=== PATIENT | male | born 1995 | race Caucasian/White ===

== ENCOUNTER 2017-05-15 18:20 | Emergency (ER) | payer SELFPAY ==
[~2017-05-15] VITALS: Ht 190.5 cm; Wt 77.1 kg
[~2017-05-15 18:20] MED LIST: AMOXICILLIN500 MG PO; AMOXIL; CLARITIN10 MG PO; NASONEX; ZITHROMAX Z PA250 MG PO; ZYRTEC
[2017-05-15] MEDS ORDERED: FLONASE ALLERG9.9 ML NAS (18:30)
[2017-05-15] MEDS ORDERED: ZYRTEC10 MG PO (18:30)
== END 2017-05-15 18:42 | disposition home or self-care (01) ==
LOC: ED 18:20
DX: J01.90 Acute sinusitis, unspecified (principal); F17.200 Nicotine dependence, unspecified, uncomplicated

== ENCOUNTER 2017-08-02 10:30 | Emergency (ER) | payer SELFPAY ==
[~2017-08-02] VITALS: Ht 193 cm; Wt 77.1 kg
[~2017-08-02 10:30] MED LIST changes: +FLONASE ALLERG9.9 ML NAS; +ZYRTEC10 MG PO
[2017-08-02] MEDS ORDERED: AMOXICILLIN500 M2 PO (10:54)
== END 2017-08-02 10:56 | disposition home or self-care (01) ==
LOC: ED 10:30
DX: J01.90 Acute sinusitis, unspecified (principal); J02.9 Acute pharyngitis, unspecified; Z79.899 Other long term (current) drug therapy

== ENCOUNTER 2017-09-06 18:41 | Emergency (ER) | payer OTHER ==
[~2017-09-06] VITALS: Ht 193 cm; Wt 77.1 kg
[~2017-09-06 18:41] MED LIST changes: +AMOXICILLIN500 M2 PO
[2017-09-06 19:00] LABS: BASO % 0.2 % (0.0-1.0); EOS # 0.1 10*3/uL (0.0-0.4); EOS % 1.5 % (1.0-4.0); HEMATOCRIT 43.3 % (42.0-52.0); HEMOGLOBIN 14.4 g/dl (14.0-18.0); LYMPH # 1.8 10*3/uL (1.3-4.4); LYMPH % 29.7 % (27.0-41.0); MEAN CELL VOLUME 88.7 fl (80.0-94.0); MEAN CORPUSCULAR HGB 29.5 pg (27.0-31.0); MEAN CORPUSCULAR HGB CONC 33.3 g/dl (33.0-37.0); MEAN PLATELET VOLUME 10.4 fl (9.6-12.3); MONO # 0.6 10*3/uL (0.1-1.0); NEUT # 3.7 10*3/uL (2.3-7.9); NEUT % 59.4 % (47.0-73.0); PLATELET COUNT AUTOMATED 217 10*3/uL (130-400); RED BLOOD COUNT 4.88 10*6/uL (4.50-5.90); RED CELL DISTRI WIDTH 12.3 % (0-14.5); WHITE BLOOD COUNT 6.2 10*3/uL (4.8-10.8)
[2017-09-06 19:14] LABS: ALKALINE PHOSPHATASE 39 U/L (45-117); BUN 22 mg/dl (7-24); CHLORIDE 105 mmol/L (98-107); CREATININE 1.25 mg/dL (0.70-1.30); LIPASE 76 U/L (73-393); POTASSIUM 3.8 mmol/L (3.5-5.1); SGOT/AST 14 IU/L (3-35); SGPT/ALT 31 U/L (12-78); SODIUM 141 mmol/L (136-145); TOTAL PROTEIN 7.1 gm/dL (6.4-8.2)
[2017-09-06] MEDS ORDERED: LOMOTIL 2.5-0.1 EACH PO (20:07)
[2017-09-15] MEDS ORDERED: SEPTDS PO (22:32)
[2017-09-15] MEDS ORDERED: FLONASE ALLERG9.9 ML NS (22:32)
[2017-10-02] MEDS ORDERED: ZYRTEC10 MG PO (22:42)
[2017-10-02] MEDS ORDERED: OMNICEF300 MG PO (22:42)
== END 2017-09-06 20:16 ==
LOC: ED 18:41
PROVIDERS: Nurse Practitioner Family
DX: R19.7 Diarrhea, unspecified (principal); R10.9 Unspecified abdominal pain; R03.0 Elevated blood-pressure reading, without diagnosis of hypertension

== ENCOUNTER 2018-12-01 18:07 | Emergency (ER) | payer SELFPAY ==
[~2018-12-01] VITALS: Ht 190.5 cm; Wt 77.1 kg
[~2018-12-01 18:07] MED LIST changes: +FLONASE ALLERG9.9 ML NS; +LOMOTIL 2.5-0.1 EACH PO; +OMNICEF300 MG PO; +SEPTDS PO
== END 2018-12-01 19:18 | disposition home or self-care (01) ==
LOC: ED 18:07
DX: R11.2 Nausea with vomiting, unspecified (principal)

== ENCOUNTER 2024-04-22 16:10 | Emergency (ER) | payer SELFPAY ==
[~2024-04-22] VITALS: Wt 79.4 kg
== END 2024-04-22 18:04 | disposition home or self-care (01) ==
LOC: ED 16:10
DX: B34.9 Viral infection, unspecified (principal); R11.2 Nausea with vomiting, unspecified; Z20.822 Contact with and (suspected) exposure to COVID-19